=== PATIENT | female | born 1975 | race Caucasian/White ===

== ENCOUNTER → 2021-03-23 | Outpatient (CLI) | payer BC ==
--- NOTE | 2021-03-23 11:11 | RAD ---
EXAM: XR FOOT_LEFT 3 VIEWS 03/23/2021 10:10 AM CLINICAL INDICATION: Cyst just below left lateral malleolus COMPARISON: None TECHNIQUE: AP, oblique, and lateral views of the left FINDINGS: No acute fracture. Alignment is normal. Joint spaces are maintained. There is a small plan tar calcaneal enthesophyte. No focal soft tissue abnormality. IMPRESSION: No acute osseous abnormality. Electronically signed by: Lily Rhodes MD (03/23/2021 11:09 AM) [id number]
== END ==
LOC: RAD 10:04
PROVIDERS: ATTEND Podiatrist
DX: M77.32 Calcaneal spur, left foot (principal); M79.672 Pain in left foot
CPT/HCPCS: 73630